=== PATIENT | male | born 1965 | race Two or more races ===

== ENCOUNTER 2018-02-24 08:29 | Emergency (ER) | payer OTHER ==
[~2018-02-24] VITALS: Ht 170.2 cm; Wt 76.2 kg
[~2018-02-24 08:29] MED LIST: AMOX1TAB5 PO; CIPRO500 MG PO; COZAAR25 MG; INTESTINEX1 CA1 PO; JANUMET 50-1,1 UDTAB PO; KETO10TA2 PO; NASONEB NASAL1 EACH MC; OMEPRAZOLE40 MG PO; PYRIDIUM100 M1 PO; TAMS0.4C PO; ULTRACET PO; XYZAL5 MG PO; ZITHROMAX500 MG PO
[2018-02-24] MEDS ORDERED: ATORVASTATIN CA10 MG (08:52)
== END 2018-02-24 11:30 | disposition home or self-care (01) ==
LOC: ER 08:29
DX: B35.1 Tinea unguium (principal); M79.674 Pain in right toe(s); E11.9 Type 2 diabetes mellitus without complications

== ENCOUNTER 2018-03-22 16:18 | Emergency (ER) | payer OTHER ==
[~2018-03-22] VITALS: Ht 170.2 cm; Wt 76.2 kg
[~2018-03-22 16:18] MED LIST changes: +ATORVASTATIN CA10 MG
[2018-03-22] MEDS ORDERED: LOSARTAN POTASS25 MG (16:42)
== END 2018-03-22 19:05 | disposition home or self-care (01) ==
LOC: ER 16:18
DX: M54.2 Cervicalgia (principal); M79.622 Pain in left upper arm; M79.675 Pain in left toe(s)

== ENCOUNTER 2018-12-05 07:55 | Outpatient (CLI) | payer OTHER ==
[~2018-12-05 07:55] MED LIST changes: +LOSARTAN POTASS25 MG
== END 2018-12-05 08:15 | disposition home or self-care (01) ==
LOC: NUCLEAR 07:55
DX: I20.9 Angina pectoris, unspecified (principal)
CPT/HCPCS: 78452; 93017; A9500

== ENCOUNTER 2019-10-05 13:45 | Outpatient (CLI) | payer OTHER | END 2019-10-05 13:56 | disposition home or self-care (01) | LOC: MRI 13:45 | DX: M54.2 Cervicalgia (principal); M54.6 Pain in thoracic spine | CPT/HCPCS: 72141; 72146 ==

== ENCOUNTER 2020-11-02 07:14 | Outpatient (CLI) | payer OTHER | END 2020-11-02 07:26 | disposition home or self-care (01) | LOC: SONOGRAMA 07:14 → MAMO-SONO 07:15 → SONOGRAMA 07:26 | PROVIDERS: ATTEND Internal Medicine | DX: N40.1 Benign prostatic hyperplasia with lower urinary tract symptoms (principal); N28.89 Other specified disorders of kidney and ureter ==

== ENCOUNTER 2022-05-04 11:46 | Outpatient (CLI) | payer OTHER | END 2022-05-04 12:00 | disposition home or self-care (01) | LOC: MRI 11:46 | PROVIDERS: ATTEND Internal Medicine | DX: Z86.73 Personal history of transient ischemic attack (TIA), and cerebral infarction without residual deficits (principal) | CPT/HCPCS: 70551 ==

== ENCOUNTER → 2022-05-04 | Outpatient (CLI) | payer OTHER ==
[~2022-05-04] MED LIST changes: +MIRALAX17 GM PO; +TYLENOL ARTHRI650 MG PO; +ULTRAM50 MG PO; +[UNRECOGNIZED DRUG - OTHER]
== END | disposition home or self-care (01) ==
LOC: NUCLEAR 09:18
PROVIDERS: ATTEND Internal Medicine
DX: E11.9 Type 2 diabetes mellitus without complications (principal); Z86.73 Personal history of transient ischemic attack (TIA), and cerebral infarction without residual deficits

== ENCOUNTER 2022-05-29 07:46 | Day surgery (SDC) | payer OTHER ==
[2022-05-29] MEDS ORDERED: TRAMADOL HCL50 MG PO (13:24)
== END 2022-05-29 14:15 | disposition home or self-care (01) ==
LOC: CIR.AMB 07:46
PROVIDERS: ATTEND Surgery
DX: N47.1 Phimosis (principal); Z20.822 Contact with and (suspected) exposure to COVID-19; I10 Essential (primary) hypertension; E11.9 Type 2 diabetes mellitus without complications

== ENCOUNTER 2023-02-18 07:30 | Outpatient (CLI) | payer OTHER ==
[~2023-02-18 07:30] MED LIST changes: +TRAMADOL HCL50 MG PO
== END 2023-02-18 07:42 | disposition home or self-care (01) ==
LOC: SONOGRAMA 07:30
DX: N18.31 Chronic kidney disease, stage 3a (principal); E11.22 Type 2 diabetes mellitus with diabetic chronic kidney disease

== ENCOUNTER 2023-03-27 07:13 | Outpatient (CLI) | payer OTHER | END 2023-03-27 13:45 | disposition home or self-care (01) | LOC: MRI 07:13 | DX: C64.9 Malignant neoplasm of unspecified kidney, except renal pelvis (principal); N28.89 Other specified disorders of kidney and ureter | CPT/HCPCS: 72196; 74182 ==

== ENCOUNTER 2024-03-10 07:11 | Outpatient (CLI) | payer OTHER | END 2024-03-10 07:14 | disposition home or self-care (01) | LOC: NUCLEAR 07:11 | PROVIDERS: ATTEND Internal Medicine | DX: R07.9 Chest pain, unspecified (principal) ==

== ENCOUNTER 2024-03-20 07:28 | Outpatient (CLI) | payer OTHER | END 2024-03-20 07:35 | disposition home or self-care (01) | LOC: MRI 07:28 | PROVIDERS: ATTEND Surgery | DX: N28.89 Other specified disorders of kidney and ureter (principal) | CPT/HCPCS: 74183 ==

== ENCOUNTER 2024-09-26 12:29 | Emergency (ER) | payer OTHER ==
[~2024-09-26] VITALS: Ht 170.2 cm; Wt 74.4 kg
[2024-09-26] MEDS ORDERED: TRIJARDY XR 121 EACH PO (15:14)
[2024-09-26 16:35] LABS: BUN CREA RATIO 14.0 (7.0-25.0); CREATININE SERUM 1.33 mg/dL (0.70-1.30); GFR 54.85; GLUCOSE FASTING 139.0 mg/dL (65-100); OSMOLALITY SERUM 289.0 MOSM/KG (275-295)
[2024-09-26] MEDS ORDERED: CEFTRIAXONE SODIUM 1,000 MG VIAL IM ONE (20:15)
[2024-09-26] MEDS ORDERED: AMOX-CLAV 875-1 EACH PO (20:22)
[2024-09-26] MEDS ORDERED: CEFTRIAXONE SODIUM 1,000 MG VIAL ONE (20:56)
== END 2024-09-26 21:09 | disposition home or self-care (01) ==
LOC: ER 13:17
PROVIDERS: General Practice
DX: E04.1 Nontoxic single thyroid nodule (principal); E11.9 Type 2 diabetes mellitus without complications

== ENCOUNTER 2024-10-08 10:13 | Outpatient (CLI) | payer OTHER ==
[~2024-10-08 10:13] MED LIST changes: +AMOX-CLAV 875-1 EACH PO; +TRIJARDY XR 121 EACH PO
== END 2024-10-08 10:14 | disposition home or self-care (01) ==
LOC: SONOGRAMA 10:13
PROVIDERS: ATTEND Pathology Anatomic Pathology & Clinical Pathology
DX: D34 Benign neoplasm of thyroid gland (principal); D44.0 Neoplasm of uncertain behavior of thyroid gland; E07.89 Other specified disorders of thyroid; E04.2 Nontoxic multinodular goiter

== ENCOUNTER 2025-02-23 07:39 | Outpatient (CLI) | payer OTHER | END 2025-02-23 07:46 | disposition home or self-care (01) | LOC: TOM 07:39 | PROVIDERS: ATTEND Internal Medicine Nephrology | DX: N28.1 Cyst of kidney, acquired (principal) ==